=== PATIENT | male | born 1995 | race Caucasian/White ===

== ENCOUNTER 2022-09-16 19:38 | Inpatient (IN) ==
[2022-09-16] MEDS ORDERED: SODIUM CHLORIDE 0.9% 1000ML 1,000 ML IV STA (19:54)
--- NOTE | 2022-09-16 20:09 | Emergency Department Note ---
ED Provider Note History of Present Illness Chief Complaint: Abdominal Pain Stated Complaint: LRQ ABDOMINAL PAIN Time Seen by Provider: 09/16/22 19:48 27-year-old male who presents to the emergency department with complaint of developing right lower quadrant pain. The patient reports that he developed an epigastric discomfort earlier today, and the pain has since radiated into the right lower quadrant region. The patient does report a prior history of IBS, but reports that this feels different. The patient is not on any medications for his IBS. He denies history of reflux. The patient has not had any recent diarrhea, constipation or urinary symptoms. Patient currently denies any alleviating or aggravating factors for his pain, and rates his discomfort a 5 out of 10. Home Medications Medication Instructions Recorded Confirmed Type No Known Home Medications 02/18/20 09/16/22 History Allergies Allergy/AdvReac Type Severity Reaction Status Date / Time cat dander Allergy Intermediate ITCHY Verified 09/16/22 20:44 EYES, SNEEZING, CONGESTION horse dander Allergy Intermediate ITCHY Verified 09/16/22 20:44 EYES, SNEEZING, CONGESTION Past Med/Surg History Medical History IBS (irritable bowel syndrome) Surgical History No significant past surgical history Social History Smoking Status: Never smoker Preferred Language: Scottish marital status: Single current occupational status: student Feels Safe at Home: Yes Physical Exam Vital Signs Vital Signs - 24 hr 09/16/22 19:40 09/16/22 20:12 09/16/22 22:31 Temperature 36.6 C Temperature Source Temporal Artery Scan Pulse Rate 113 H Pulse Rate [Finger] 92 H 96 H Pulse Rhythm Regular Pulse Strength Normal Respiratory Rate 18 20 20 Respiratory Effort / Characteristics Non-Labored Spontaneous Respiratory Depth Normal Respiratory Pattern Regular Blood Pressure 159/100 H Blood Pressure [Right Arm] 148/100 H 151/106 H Blood Pressure Mean 119 Blood Pressure Mean [Right Arm] 116 121 Blood Pressure Position Sitting Pulse Oximetry 100 98 98 Oxygen Delivery Method Room Air Room Air Room Air Sepsis Recent Fever Within 48 Hours No Sepsis New/Unexplained Change in Mental Status N/A Sepsis Action Taken by Nursing No Action Required CONSTITUTIONAL: Healthy and well nourished. Patient does not appear in any acute distress HEENT: No scleral icterus or conjunctival pallor. RESPIRATORY: Clear to auscultation bilaterally with no wheezing, crackles, rhonchi or stridor. CARDIOVASCULAR: Regular rate and rhythm with no murmurs, rubs or gallops. GASTROINTESTINAL: Bowel sounds present in all quadrants. Patient has a mild McBurney's point tenderness and Rovsing sign. Negative psoas/obturator sign. Negative heeltap. Negative CVA tenderness. MUSCULOSKELETAL: Full range of motion of all joints without discomfort. INTEGUMENTARY: No rash or other significant dermatologic conditions noted. HEMATOLOGIC: No ecchymosis or petechiae. PSYCHIATRIC: Positive affect. NEUROLOGIC: No focal neurologic deficits noted. Course Course Patient history and physical exam were performed. Nurses notes were reviewed. Vital signs were reviewed, showing an elevated blood pressure and mild tachycardia. IV access was established, and labs were drawn. The patient was hydrated with a liter of normal saline. He refused any analgesics or antiemetics. Review of labs showed a normal white count with mild left shift and no bandemia. Further review of labs shows a mild hypokalemia that will not require repletion. Random glucose was also elevated at 176. LFTs and lipase were normal. Urinalysis shows no hematuria or signs of infection. Lab findings were discussed with the patient. I did elect to order an A1c, with the patient reporting that his grandfather had a history of diabetes, however denies any immediate relatives with known diabetes. CT with IV contrast of the abdomen and pelvis was performed, showing an uncomplicated appendicitis with a ppendicolith. Findings were discussed with the patient. He also got his mother on the phone, and I discussed findings with her as well. The mother is a nurse, and reported that she was going to drive in from [place], and wanted to speak with the surgery service when they come into the room. Findings were further discussed with Jeanmarie Macias PA-C working with Dr. Cleary, general surgeon on-c all. Please see their dictation for further surgical treatment and final disposition. Administered Medications Discontinued Medications Sodium Chloride (Nss 1000ml) 1,000 mls @ 999 mls/hr IV .Q1H1M STA Stop: 09/16/22 20:54 Last Infusion: 09/16/22 21:11 Dose: 0 mls/hr Documented By: Admin: 09/16/22 20:10 Dose: 999 mls/hr Documented By: ENRIQUE Ioversol (Optiray 320 100ml) 86 ml IV ONCE ONE Stop: 09/16/22 21:05 Last Admin: 09/16/22 21:04 Dose: 86 ml Documented By: AKBAR Medical Decision Making Medical Records Attestation: I reviewed the patient's medical records. Home Medications was personally reviewed by me Laboratory Data Attestation: I reviewed the patient's lab results. 09/16/22 19:55 09/16/22 19:55 Lab Results 09/16/22 09/16/22 09/16/22 Range/Units 19:50 19:55 19:55 WBC 9.74 (4.8-10.8) K/ul RBC 4.96 (4.70-6.10) M/uL Hgb 15.7 (14.0-18.0) g/dl Hct 43.7 (42.0-52.0) % MCV 88.1 (80.0-100.0) fL MCH 31.7 (25.0-34.0) pg MCHC 35.9 (32.0-36.0) g/dL RDW Std Deviation 41.0 (36.4-46.3) fL RDW Coeff of Shadia 12.8 (11.5-14.5) % Plt Count 243 (130-400) K/uL MPV 9.9 (9.4-12.4) fL Immature Gran % (Auto) 0.2 % Neut % (Auto) 70.3 % Lymph % (Auto) 19.9 % [place] % (Auto) 6.6 % Eos % (Auto) 2.5 % Baso % (Auto) 0.5 % Neut # (Auto) 6.85 H (1.40-6.50) K/uL Lymph # (Auto) 1.94 (1.2-3.4) K/uL [place] # (Auto) 0.64 H (0.11-0.59) K/uL Eos # (Auto) 0.24 (0-0.50) K/uL Baso # (Auto) 0.05 (0-0.2) K/uL Immature Gran # (Auto) 0.02 (0.01-0.20) K/uL Sodium 138 (136-145) mmol/L Potassium 3.4 L (3.5-5.1) mmol/L Chloride 101 (98-107) mmol/L Carbon Dioxide 27 (21-32) mmol/L Anion Gap 10 (3-11) BUN 13 (6-23) mg/dl Creatinine 1.28 (0.6-1.4) mg/dl Est Cr Clr Drug Dosing 90.3 ml/min Est GFR ( Amer) 88.9 ml/min Est GFR (Non-Af Amer) 76.7 ml/min BUN/Creatinine Ratio 10.2 (10-20) Glucose 176 H (70-99(Fasting)) mg/dl Calcium 9.6 (8.6-10.3) mg/dl Total Bilirubin 1.0 (0.2-1.0) mg/dl AST 17 (13-39) U/L ALT 17 (7-52) U/L Alkaline Phosphatase 57 (34-104) U/L Total Protein 8.2 (6.0-8.3) gm/dl Albumin 5.1 H (3.4-5.0) gm/dl Globulin 3.1 (2.5-4.0) gm/dl Albumin/Globulin Ratio 1.6 (0.9-2) Lipase 16 (11-82) U/L Urine Color Yellow Urine Appearance Clear (Clear) Urine pH 5.5 (4.5-7.5) Ur Specific [place] 1.016 (1.000-1.030) Urine Protein Negative (Negative) Urine Glucose (UA) Negative (Negative) Urine Ketones Negative (Negative) Urine Blood Negative (Negative) Urine Nitrite Negative (Negative) Urine Bilirubin Negative (Negative) Urine Urobilinogen Negative (Negative) Ur Leukocyte Esterase Negative (Negative) Imaging Data Attestation: I personally reviewed and interpreted this imaging study as fo llows: My Impression: My interpretation of the CT with IV contrast of the abdomen and pelvis shows evidence for an uncomplicated appendicitis with appendicolith. Radiologist report was also reviewed with concurrence. Radiologist's Impression: Abdomen/Pelvis CT 09/16/22 19:54 CR Exam(s): CT ABDOMEN + PELVIS With Contrast IV Amt: 86 ml optiray 320 EXAM: CT Abdomen and Pelvis With Intravenous Contrast CLINICAL HISTORY: Reason for exam: RLQ abd pain. TECHNIQUE: Axial computed tomography images of the abdomen and pelvis with intravenous contrast. CTDI is 7.15 mGy and DLP is 356.28 mGy-cm. Automated exposure control was utilized for the study. A dose lowering technique was utilized adhering to the principles of ALARA. CONTRAST: Patient received 86 ml optiray 320 of IV contrast COMPARISON: None FINDINGS: Lung bases: Unremarkable. No mass. No consolidation. ABDOMEN: Liver: Probable hepatic steatosis. Hepatomegaly. Gallbladder and bile ducts: Unremarkable. No calcified stones. No ductal dilation. Pancreas: Unremarkable. No mass. No ductal dilation. Spleen: Unremarkable. No splenomegaly. Adrenals: Unremarkable. No mass. Kidneys and ureters: Unremarkable. No hydronephrosis or obstructing stone. Stomach and bowel: Unremarkable. No mucosal thickening. No bowel obstruction. PELVIS: Appendix: Mild enlargement of the appendix measuring 9 mm with mild fat stranding and small appendicolith in the appendix. Findings are concerning for acute appendicitis. Bladder: Mildly distended bladder. No significant bladder wall thickening or stone. Reproductive: Unremarkable as visualized. ABDOMEN and PELVIS: Intraperitoneal space: Unremarkable. No free air. No significant fluid collection. Bones/joints: No acute fracture. No dislocation. Soft tissues: Unremarkable. Vasculature: Unremarkable. No abdominal aortic aneurysm. Lymph nodes: Unremarkable. No enlarged lymph nodes. IMPRESSION: 1. Mild enlargement of the appendix measuring 9 mm with mild fat stranding and small appendicolith in the appendix. Findings are concerning for acute appendicitis. 2. Probable hepatic steatosis. Hepatomegaly. Communications: Call Doctor Appendicitis Electronically signed by: Aleah Mohamud M.D. 09/16/22 22:07 PM [facility] Narrative See ED Course section for further details of today's visit. The patient presents to the emergency department with complaint of an evolving right lower quadrant abdominal pain. Physical examination does show a mild McBurney's point tenderness and Rovsing sign, concerning for possible early appendicitis. Review of labs did not show any significant leukocytosis. He does have an elevated glucose, and an A1c was ordered for convenience. CT imaging of the abdomen and pelvis shows evidence for an uncomplicated appendicitis. The case was further discussed with general surgery on-call, who will take the patient to the OR for further surgical management. Further review of labs are not suggestive of UTI, pancreatitis, cholecystitis or hepatitis. The patient does not have any fever or leukocytosis. I do not suspect musculoskeletal etiology. Also do not suspect testicular referred pain. Impression Acute appendicitis, Appendicolith Discharge Plan Visit Data Chief Complaint: Abdominal Pain Stated Complaint: LRQ ABDOMINAL PAIN ED Provider: Darwin Augustine ED Midlevel Provider: Alfred Dickey Discharge Problem: Acute appendicitis, Appendicolith Forms Stand Alone Forms: [employer] Prescriptions Prescriptions: No Action No Known Home Medications Referrals Referrals: PCP,NO [Physician] - Acute appendicitis Qualifiers: Acute appendicitis type: with localized peritonitis Appendicitis gangrene presence: without gangrene Appendicitis perforation presence: without perforation Appendicitis abscess presence: without abscess Qualified Code(s): K35.30 - Acute appendicitis with localized peritonitis, without perforation or gangrene
[2022-09-16 20:20] LABS: Appearance Urine Clear (Clear); Bilirubin Urine Negative (Negative); Blood Urine Negative (Negative); Color Urine Yellow; Glucose Urine UA Negative (Negative); Ketones Urine Negative (Negative); Leukocyte Esterase Urine Negative (Negative); Nitrite Urine Negative (Negative); Protein Urine Negative (Negative); Specific Gravity Urine 1.016 (1.000-1.030); Urobilinogen Urine Negative (Negative); pH Urine 5.5 (4.5-7.5)
[2022-09-16 20:32] LABS: Basophils # (auto) 0.05 K/uL (0-0.2); Basophils % (auto) 0.5 %; Eosinophils # (auto) 0.24 K/uL (0-0.50); Eosinophils % (auto) 2.5 %; Hematocrit (blood only) 43.7 % (42.0-52.0); Hemoglobin 15.7 g/dl (14.0-18.0); Immature Granulocytes # (auto) 0.02 K/uL (0.01-0.20); Immature Granulocytes % (auto) 0.2 %; Lymphocytes # (auto) 1.94 K/uL (1.2-3.4); Lymphocytes % (auto) 19.9 %; Mean Corpuscular Hemoglobin 31.7 pg (25.0-34.0); Mean Corpuscular Hgb Conc 35.9 g/dL (32.0-36.0); Mean Corpuscular Volume 88.1 fL (80.0-100.0); Mean Platelet Volume 9.9 fL (9.4-12.4); Monocytes # (auto) 0.64 K/uL (0.11-0.59); Monocytes % (auto) 6.6 %; Neutrophils # (auto) 6.85 K/uL (1.40-6.50); Neutrophils % (auto) 70.3 %; Platelet Count 243 K/uL (130-400); RDW Coefficient of Variation 12.8 % (11.5-14.5); Red Blood Count 4.96 M/uL (4.70-6.10); White Blood Count 9.74 K/ul (4.8-10.8)
[2022-09-16 20:39] LABS: Albumin Globulin Ratio 1.6 (0.9-2); Albumin Level 5.1 gm/dl (3.4-5.0); BUN Creatinine Ratio 10.2 (10-20); Calcium 9.6 mg/dl (8.6-10.3); Creatinine Clr Calc Pharmacy 90.3 ml/min; Est GFR (African American) 88.9 ml/min; Est GFR (Non-African American) 76.7 ml/min; Globulin 3.1 gm/dl (2.5-4.0); Potassium 3.4 mmol/L (3.5-5.1); Total Protein 8.2 gm/dl (6.0-8.3)
[2022-09-16] MEDS ORDERED: OPTIRAY 320 100ml IV ONE (21:04)
--- NOTE | 2022-09-16 22:07 | CT Scan Report ---
Exam(s): CT ABDOMEN + PELVIS With Contrast IV Amt: 86 ml optiray 320 EXAM: CT Abdomen and Pelvis With Intravenous Contrast CLINICAL HISTORY: Reason for exam: RLQ abd pain. TECHNIQUE: Axial computed tomography images of the abdomen and pelvis with intravenous contrast. CTDI is 7.15 mGy and DLP is 356.28 mGy-cm. Automated exposure control was utilized for the study. A dose lowering technique was utilized adhering to the principles of ALARA. CONTRAST: Patient received 86 ml optiray 320 of IV contrast COMPARISON: None FINDINGS: Lung bases: Unremarkable. No mass. No consolidation. ABDOMEN: Liver: Probable hepatic steatosis. Hepatomegaly. Gallbladder and bile ducts: Unremarkable. No calcified stones. No ductal dilation. Pancreas: Unremarkable. No mass. No ductal dilation. Spleen: Unremarkable. No splenomegaly. Adrenals: Unremarkable. No mass. Kidneys and ureters: Unremarkable. No hydronephrosis or obstructing stone. Stomach and bowel: Unremarkable. No mucosal thickening. No bowel obstruction. PELVIS: Appendix: Mild enlargement of the appendix measuring 9 mm with mild fat stranding and small appendicolith in the appendix. Findings are concerning for acute appendicitis. Bladder: Mildly distended bladder. No significant bladder wall thickening or stone. Reproductive: Unremarkable as visualized. ABDOMEN and PELVIS: Intraperitoneal space: Unremarkable. No free air. No significant fluid collection. Bones/joints: No acute fracture. No dislocation. Soft tissues: Unremarkable. Vasculature: Unremarkable. No abdominal aortic aneurysm. Lymph nodes: Unremarkable. No enlarged lymph nodes. IMPRESSION: 1. Mild enlargement of the appendix measuring 9 mm with mild fat stranding and small appendicolith in the appendix. Findings are concerning for acute appendicitis. 2. Probable hepatic steatosis. Hepatomegaly. Communications: Call Doctor Appendicitis Electronically signed by: Aleah Mohamud M.D. 09/16/22 22:07 PM
--- NOTE | 2022-09-16 22:32 | Surgery Consultation ---
Date of Consultation September 16, 2022 Assessment & Plan (1) Acute appendicitis: Due to the patient's clinical presentation and findings on imaging we will admit him to the hospital proceeding as follows: We will implement n.p.o. status We will provide IV fluid for hydration, supplementing his potassium -Serial labs will be followed We will initiate antibiotics. We will utilize Zosyn. Analgesia will be provided Antiemetics be provided I discussed case with my attending physician and we have elected to place patient on the operating room schedule for 09/17/2022 for a laparoscopic, possible open appendectomy.bI have discussed the risks, benefits, and alternatives of the surgery with the patient. I have also discussed the risks of not performing the surgery. I discussed the expected postoperative course and limitations/restrictions with the patient. He wishes to proceed Of note, the patient was noted to have an elevated glucose level of 176. The patient denies any known history of diabetes. It is noteworthy to mention that the patient did not have any glucose noted on his urinalysis. We will follow this with serial laboratories and acu checks. This elevation may be due to the stress response to his current illness, but will need to be followed. If he is noted to have persistently high levels we will enlist the assistance of the hospitalists. I have discussed with the patient the importance of obtaining close follow-up with his family physician upon discharge from the hospital regarding this condition. Additional recommendations be forthcoming based on operative findings and the patient's postoperative course We will use SCDs for DVT prevention, no chemical means due to planned surgery The patient will be a level 1 full code Supervising Physician Co-Signing Physician Notes I personally saw and evaluated the patient with Martin Macias PA-C and agree with the assessment and plan. 27-year-old male with acute appendicitis His CT images and results were personally viewed by myself, consistent with a dilated appendix with some fat stranding and appendicolith causing of acute appendicitis Will be admitted to the surgical service N.p.o. IV fluids IV antibiotics To the OR tomorrow for laparoscopic appendectomy, possible open History of Present Illness Reason for Consultation: Acute appendicitis History of Present Illness This is a 27-year-old male who presented to the emergency department at [facility] secondary to approximate 24 hours of abdominal pain. Patient notes he has a history of irritable bowel syndrome and he was concerned that this may have been the cause of his abdominal pain. He does note the pain began in the epigastric and periumbilical region and did not improve over the past 24 hours and has shifted to the right lower quadrant. Because of this he presented to the emergency department. He denies any fevers, shakes, or chills. He denies any nausea or vomiting. He does note that the pain is somewhat better when he lies still or when he stands up. He notes that the pain is worse with certain movements and was somewhat worse when walking up and down stairs. He notes that the pain does not radiate. He has never had any prior abdominal surgeries before. As he does have history of irritable bowel syndrome he has had a colonoscopy in the past and he notes that he did have a polyp removed but to the best of his knowledge there is no other concerning pathology. He does note that his most recent oral intake was at approximately 6:30 PM this evening at which time he ate some rice. Since arrival to the emergency department the patient has had labs and imaging which I independently reviewed. A CT scan of the abdomen pelvis showed that he had mild enlargement of the appendix measuring approximate 9 mm with associated fat stranding and a small appendicolith in the appendix. These findings were co ncerning for acute appendicitis. Labs include a CBC were white blood cell count, hemoglobin, hematocrit, and platelet count were normal. Chemistry profile showed sodium was normal. His potassium was slightly low at 3.4. BUN and creatinine were 13 and 1.2 which were normal. He did not have any elevation of his LFTs. He was noted to have an elevated glucose at 176. He did not have any elevation of his lipase. Urinalysis was not indicative of infection. There is no glucose noted on the urinalysis. The patient had a COVID test which is pending. At the time of my interview the patient was resting comfortably in bed he was in no distress. Concerning past medical history the patient only reports a history of irritable bowel syndrome Concerning past surgical history patient notes he has had a lip reconstruction secondary to suffering a dog bite Concerning social history the patient does not smoke Concerning family history he does not report family history of premature coronary disease Concerning allergies the patient denies any medicine allergies and specifically notes that he can take penicillin derivatives. Allergies Allergy/AdvReac Type Severity Reaction Status Date / Time cat dander Allergy Intermediate ITCHY Verified 09/16/22 20:44 EYES, SNEEZING, CONGESTION horse dander Allergy Intermediate ITCHY Verified 09/16/22 20:44 EYES, SNEEZING, CONGESTION Home Medications Medication Instructions Recorded Confirmed Type No Known Home Medications 02/18/20 09/16/22 History Patient History Medical History IBS (irritable bowel syndrome) Surgical History No significant past surgical history Social History Smoking Status: Never smoker Second Hand Exposure: No; Do You Dip or Chew Tobacco: No; Tobacco Cessation Education Requested by Patient: No Hx Alcohol Use: Yes Alcohol type: beer and hard liquor Hx Substance Use: No Preferred Language: B[place] Communication Ability: Effective 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 Beliefs That Will Affect Care: None marital status: Single Current Living Situation: Other Current Living Situation Comment: 2 roommates in apartment current occupational status: student Other Information That Helps Us Care for You: No Feels Safe at Home: Yes Safety Concerns: Feels Safe At This Time Assistive Devices: Glasses Review of Systems Constitutional: no fever and no chills Eyes: + corrective lenses Ear, Nose, Mouth, Throat: no hearing loss Respiratory: no cough and no dyspnea Cardiovascular: no chest pain Gastrointestinal: as per Subjective / HPI Genitourinary: no dysuria Musculoskeletal: no back pain Integumentary: no rash Neurologic: no localized weakness Physical Exam Constitutional: WD/WN, vitals as above Eyes: no conjunctival abnormality Wears glasses ENMT: Ears: no hearing impairment and no external ear abnormality Mouth: no oropharynx abnormality Neck: trachea midline Respiratory: normal respiratory effort, lungs clear to auscultation Cardiovascular: Rate/Rhythm: regular rate, regular rhythm and + tachycardic Vessels: dorsalis pedis pulses present and radial pulses present Gastrointestinal (Abdomen): Abdomen is soft and nondistended. Bowel sounds are present. His abdomen is nonrigid. Patient did have pain with palpation in the right lower quadrant over McBurney's point. There is slight rebound tenderness noted. Musculoskeletal: No calf tenderness, feet are warm and well-perfused Skin: no rashes Neurologic: moves all extremities Psychiatric: A+Ox3, euthymic affect Genitourinary: no CVA tenderness Results & Data Vital Signs (Past 12 Hours) Vital Signs Temp Pulse Pulse Resp BP BP Pulse Ox 09/16/22 20:12 92 H 20 148/100 H 98 09/16/22 19:40 36.6 C 113 H 18 159/100 H 100 O2 Del Method 09/16/22 20:12 Room Air 09/16/22 19:40 Room Air PG Care Time/CCT Total # of Minutes Spent Total Time Spent with Patient: Total time spent is greater than 50% in coordination of care (as documented) at patient's floor/unit and/or counseling patient: Coding Level of Care Code 64350 IN/OBS CONSULT LVL 5,80M Diagnoses Acute appendicitis K35.30 Acute appendicitis type: with localized peritonitis Appendicitis abscess presence: without abscess Appendicitis gangrene presence: without gangrene Appendicitis perforation presence: without perforation (1) Acute appendicitis Acute appendicitis type: with localized peritonitis Appendicitis abscess presence: without abscess Appendicitis gangrene presence: without gangrene Appendicitis perforation presence: without perforation Qualified Code(s): K35.30 - Acute appendicitis with localized peritonitis, without perforation or gangrene
[2022-09-16] MEDS ORDERED: MoRPHine SULFATE 4 MG/ML 1 ML CARP\\VIAL IV PRN (22:48)
[2022-09-16] MEDS ORDERED: ACETAMINOPHEN 1,000 MG/100 ML VIAL IV PRN (22:48)
[2022-09-16] MEDS ORDERED: PIPERACILLIN/TAZOBACTAM 4.5 GM/120 ML BAG IV ONE (22:48)
[2022-09-16] MEDS ORDERED: ONDANSETRON INJ 2 MG/ML 2 ML VIAL IV PRN (22:48)
[2022-09-17] MEDS: POTASSIUM CHLORIDE 10 MEQ in SODIUM CHLORIDE 0.9% 1000ML 1,000 ML IV SCH ×2 (01:30→13:33)
[2022-09-17] MEDS ORDERED: PIPERACILLIN/TAZOBACTAM 4.5 GM in DEXTROSE 5% 100 ML IV SCH (06:00)
[2022-09-17 06:34] LABS: Basophils # (auto) 0.06 K/uL (0-0.2); Basophils % (auto) 0.7 %; Eosinophils # (auto) 0.29 K/uL (0-0.50); Eosinophils % (auto) 3.6 %; Hematocrit (blood only) 39.4 % (42.0-52.0); Hemoglobin 14.3 g/dl (14.0-18.0); Immature Granulocytes # (auto) 0.02 K/uL (0.01-0.20); Immature Granulocytes % (auto) 0.2 %; Lymphocytes # (auto) 2.22 K/uL (1.2-3.4); Lymphocytes % (auto) 27.6 %; Mean Corpuscular Hemoglobin 32.1 pg (25.0-34.0); Mean Corpuscular Hgb Conc 36.3 g/dL (32.0-36.0); Mean Corpuscular Volume 88.3 fL (80.0-100.0); Mean Platelet Volume 9.9 fL (9.4-12.4); Monocytes # (auto) 0.57 K/uL (0.11-0.59); Monocytes % (auto) 7.1 %; Neutrophils # (auto) 4.87 K/uL (1.40-6.50); Neutrophils % (auto) 60.8 %; Platelet Count 197 K/uL (130-400); RDW Coefficient of Variation 12.7 % (11.5-14.5); RDW Standard Deviation 41.1 fL (36.4-46.3); Red Blood Count 4.46 M/uL (4.70-6.10); White Blood Count 8.03 K/ul (4.8-10.8)
[2022-09-17 06:46] LABS: BUN Creatinine Ratio 8.9 (10-20); Calcium 8.6 mg/dl (8.6-10.3); Creatinine Clr Calc Pharmacy 93.2 ml/min; Est GFR (African American) 92.4 ml/min; Est GFR (Non-African American) 79.7 ml/min; Potassium 3.7 mmol/L (3.5-5.1)
[2022-09-17 07:12] LABS: Estimated Average Glucose 108 mg/dl; Hemoglobin A1C 5.4 % (4.5-5.6)
--- NOTE | 2022-09-17 08:14 | Surgery Progress Note ---
Date of Service September 17, 2022 Assessment & Plan (1) Acute appendicitis: Plan: We will take patient to the operating room today for laparoscopic appendectomy, possible open Consent was obtained, risk discussed including bleeding, infection, leak, abscess Admission and Anticipated Discharge Date Admission Date: September 16, 2022 Subjective Patient seen and examined. No acute events overnight. Afebrile. Still with right lower quadrant pain. No nausea or vomiting. Review of Systems Constitutional: no fever and no chills Physical Exam Constitutional: WD/WN, vitals as above Gastrointestinal (Abdomen): Inspection/Auscultation: abdomen normal to inspection; abdomen not distended Percussion/Palpation: + abdomen tender (Right lower quadrant), + guarding and abdomen soft; abdomen not rigid and no hernia Results & Data Vital Signs (Past 12 Hours) Vital Signs Temp Pulse Resp BP Pulse Ox O2 Del Method 09/17/22 07:04 36.8 C 89 18 147/84 H 100 Room Air 09/17/22 00:00 Room Air 09/17/22 00:00 Room Air 09/17/22 00:00 36.5 C 98 H 18 149/90 H 100 Room Air 09/16/22 23:43 88 18 145/87 H 99 Room Air 09/16/22 22:31 96 H 20 151/106 H 98 Room Air 09/16/22 20:12 92 H 20 148/100 H 98 Room Air PG Care Time/CCT Total # of Minutes Spent Total Time Spent with Patient: Total time spent is greater than 50% in coordination of care (as documented) at patient's floor/unit and/or counseling patient: Coding Level of Care Code 25825 SUB INP/OBS CARE 06/05MIN Diagnoses Acute appendicitis K35.30 Acute appendicitis type: with localized peritonitis Appendicitis abscess presence: without abscess Appendicitis gangrene presence: without gangrene Appendicitis perforation presence: without perforation (1) Acute appendicitis Acute appendicitis type: with localized peritonitis Appendicitis abscess presence: without abscess Appendicitis gangrene presence: without gangrene Appendicitis perforation presence: without perforation Qualified Code(s): K35.30 - Acute appendicitis with localized peritonitis, without perforation or gangrene
[2022-09-17] MEDS ORDERED: MIDAZOLAM HCL 1 MG/ML 2ML VIAL ONE (08:56)
[2022-09-17] MEDS ORDERED: fentaNYL citrate PF 100 MCG/2 ML VIAL ONE ×2 (08:56→10:12)
[2022-09-17] MEDS ORDERED: ONDANSETRON INJ 2 MG/ML 2 ML VIAL ONE (09:01)
[2022-09-17] MEDS ORDERED: LIDOCAINE 2% 2 ML VIAL/AMP(20MG/ML) INFIL ONE (09:01)
[2022-09-17] MEDS ORDERED: ROCURONIUM BROMIDE 10 MG/ML 5 ML VIAL IV ONE (09:01)
[2022-09-17] MEDS ORDERED: DEXAMETHASONE SOD INJ 4 MG/ML VIAL ONE (09:01)
[2022-09-17] MEDS ORDERED: PROPOFOL IV EMULSION 10 MG/ML 20 ML VIAL IV ONE (09:01)
[2022-09-17] MEDS ORDERED: HYDROmorphone INJ 1 MG/ML SYRINGE IV PRN (09:14)
[2022-09-17] MEDS ORDERED: NALOXONE HCL 0.4 MG/1 ML VIAL/CARP IV PRN (09:14)
[2022-09-17] MEDS ORDERED: FLUMAZENIL 0.1 MG/1 ML 10 ML VIAL IV PRN (09:14)
[2022-09-17] MEDS ORDERED: ATROPINE SULFATE 0.1 MG/ML 10ML SYR IV PRN (09:14)
[2022-09-17] MEDS ORDERED: fentaNYL citrate PF 100 MCG/2 ML VIAL IV PRN (09:14)
[2022-09-17] MEDS ORDERED: PROMETHAZINE HCL 12.5 MG in SODIUM CHLORIDE 0.9% 50 ML IV PRN (09:14)
[2022-09-17] MEDS ORDERED: ONDANSETRON INJ 2 MG/ML 2 ML VIAL IV PRN (09:14)
[2022-09-17] MEDS ORDERED: ePHEDrine sulfate 50 MG/ML AMP IV PRN (09:14)
--- NOTE | 2022-09-17 09:14 | Anesthesiology Consultation ---
Date of Service September 17, 2022 Assessment & Plan Chart Review Chart Review: Acceptable Risk for Surgery and Patient NOT seen in Pre Admission Testing Consults Requested none ASA ASA1 Proposed Anesthesia Anesthesia Type: General History Surgery Operation Date: 09/17/22 08:50 Proposed Procedures p Laparoscopic Appendectomy - Gabe Cleary DO Height/Weight Height: 5 ft 10 in Weight: 73.5 kg Allergies Allergy/AdvReac Type Severity Reaction Status Date / Time cat dander Allergy Intermediate ITCHY Verified 09/16/22 20:44 EYES, SNEEZING, CONGESTION horse dander Allergy Intermediate ITCHY Verified 09/16/22 20:44 EYES, SNEEZING, CONGESTION Medications Home Medications Medication Instructions Recorded Confirmed Last Taken No Known Home Medications 02/18/20 09/16/22 Unknown Active Medications Generic Name Dose Route Start Last Admin Trade Name Freq PRN Reason Stop Dose Admin Acetaminophen 1,000 mg in 100 mls @ 400 mls/hr 09/16/22 22:48 09/17/22 00:57 Ofirmev IV 09/19/22 22:47 Infused Q8H PRN Infusion pain Potassium Chloride 10 meq/ 1,005 mls @ 125 mls/hr 09/16/22 23:00 09/17/22 01:30 Sodium Chloride IV 10/16/22 22:59 125 mls/hr .Q8H3M ARINA Administration Piperacillin Sod/Tazobactam 120 mls @ 30 mls/hr 09/17/22 06:00 09/17/22 05:47 Sod 4.5 gm/ Dextrose IV 09/27/22 05:59 30 mls/hr Q8H ARINA Administration Protocol Morphine Sulfate 3 mg 09/16/22 22:48 09/17/22 05:46 Morphine Sulfate 4 Mg/Ml 1 Ml Carp\Vial IV 09/30/22 22:47 3 mg Q4H PRN Administration Pain Past Medical History Medical History IBS (irritable bowel syndrome) Exercise / Class Metabolic Activity 1 > 8 Run/Swim/Ski/Tennis Past Surgical History Surgical History No significant past surgical history Past Anesthesia History No Hx of Anesthesia Complications and No Family Hx of Anesthesia Complications History of PONV No Hx of PONV and No Hx of Motion Sickness Social History Smoking Status: Never smoker Do You Dip or Chew Tobacco: No Hx Alcohol Use: Yes Alcohol type: beer and hard liquor alcohol intake frequency: holidays/special occasions only Hx Substance Use: No Physical Exam Vital Signs Last Vital Signs Temp 36.8 C 09/17/22 07:04 Pulse 89 09/17/22 07:04 Resp 18 09/17/22 07:04 BP 147/84 H 09/17/22 07:04 Pulse Ox 100 09/17/22 07:04 O2 Del Method Room Air 09/17/22 07:04 Testing Laboratory Results 09/17/22 05:54 09/17/22 05:54 Hemoglobin A1c 5.4 % (4.5-5.6) 09/16/22 19:55 Urine Color Yellow 09/16/22 19:50 Urine Appearance Clear (Clear) 09/16/22 19:50 Urine pH 5.5 (4.5-7.5) 09/16/22 19:50 Ur Specific [place] 1.016 (1.000-1.030) 09/16/22 19:50 Urine Protein Negative (Negative) 09/16/22 19:50 Urine Glucose (UA) Negative (Negative) 09/16/22 19:50 Urine Ketones Negative (Negative) 09/16/22 19:50 Urine Nitrite Negative (Negative) 09/16/22 19:50 Ur Leukocyte Esterase Negative (Negative) 09/16/22 19:50 09/17/22 09/17/22 06:32 00:16 POC Glucose 86 93
[2022-09-17] MEDS ORDERED: BUPIVACAINE/EPINEPHRINE 0.25% 1:200,000 30 ML VIAL ONE (09:32)
[2022-09-17] MEDS ORDERED: GLYCOPYRROLATE 0.2 MG/ML VIAL ONE (10:20)
[2022-09-17] MEDS ORDERED: NEOSTIGMINE METHYLSULFATE 1 MG/ML 10ML VIAL ONE (10:20)
--- NOTE | 2022-09-17 10:53 | Post Operative Brief Note ---
PG Immediate Post Op with CF Date of Surgery September 17, 2022 Pre & Post Diagnosis Operation Date: 09/17/22 08:50 Pre-Op Diagnosis: Acute appendicitis Post-Op Diagnosis: Acute appendicitis without perforation I identified the patient and participated in the time-out.: Yes Procedure Operation Date: 09/17/22 08:50 Actual Procedures p Laparoscopic Appendectomy(Not Applicable) - Gabe Cleary DO Surgeon Gabe Cleary DO Heel Cementer Rosa Scherer PA-C Estimated Blood Loss 5 Findings Consistent with Post-Op Diagnosis Specimens Specimen Description: permanent specimen: A) Appendix Drains Cuevas Catheter Anesthesia Type General Complications none Disposition Disposition: Recovery Room
--- NOTE | 2022-09-17 10:55 | Operative Report ---
PG Post Operative Report Pre & Post Diagnosis Operation Date: 09/17/22 08:50 Pre-Op Diagnosis: Acute appendicitis Post-Op Diagnosis: Acute appendicitis without perforation I identified the patient and participated in the time-out.: Yes Procedure Operation Date: 09/17/22 08:50 Actual Procedures p Laparoscopic Appendectomy(Not Applicable) - Gabe Cleary DO Surgeon Gabe Cleary DO Hull Inspector Roas Scherer PA-C Estimated Blood Loss 5 Findings Consistent with Post-Op Diagnosis Specimens Appendix to pathology Drains None Anesthesia Type General Complications none Disposition Disposition: Recovery Room Indications 27 yo male with acute appendicitis Description of Procedure The patient was brought to the OR and placed in the supine position and SCD's placed. At this time he underwent general endotracheal anesthesia without incident. At this time a Cuevas catheter was placed under sterile conditions. His abdomen was prepped and draped in the usual sterile fashion. He was given appropriate pre-operative antibiotics. A timeout was called, the procedure was verified as Laparoscopic appendectomy, possible open. Surgical, anesthesia and nursing teams agreed and the procedure was begun. After injection of 0.25% Marcaine with epinephrine, a supraumbilical incision was made using a #11 blade scalpel and carried down to the fascia with a hemostat. The abdomen was then elevated with towel clamps and entered using the Veress needle confirming position using the saline drop test. Pneumoperitoneum was established and 5mm trocar was placed. Laparoscope was introduced. No injury was seen from our entrance to the abdomen. At this time a 5mm suprapubic port and 12mm LLQ port were placed under direct visualization. The patient was placed in Trendelenburg and rotated to the left. At this time the appendix was visualized and the tip was freed and elevated toward the abdominal wall. The appendix appeared inf lamed, dilated and edematous. A window was created in the mesoappendix at the base of the appendix. A 45mm purple load stapler was then fired across the base of the appendix which appeared healthy. The mesoappendix was then taken using Harmonic device. The appendix was then placed in an Endocatch bag and removed through the LLQ port site. Staple line was inspected and was intact. Hemostasis was complete. The 12 mm port was then closed at the fascial level using a 0 Vicryl suture using the suture passer. All ports were removed under direct visualization and no bleeding was noted. The abdomen was desufflated and the skin was closed using 4-0 Monocryl in a subcuticular fashion. Sterile dressings were applied. Cuevas catheter was removed. The patient was then awakened from anesthesia having remained stable throughout the entire case and transported to PACU. All needle and sponge counts were correct x 2. The physician assistant reading teacher was present and scrubbed for the entire case. She was essential in positioning, prepping and draping the patient, driving the laparoscope, closure of the incisions and placement of the dressings. I attest to the content of the Intraoperative Record and any orders documented therein. Any exceptions are noted below.
[2022-09-17] MEDS ORDERED: SUGAMMADEX SODIUM 200 MG/2 ML VIAL IV ONE (11:53)
--- NOTE | 2022-09-17 12:02 | Anesthesiology Progress Note ---
Date of Service September 17, 2022 Anesthesia Post Procedure Vital Signs Vital Signs: Temp Pulse Pulse Pulse Resp BP BP 09/17/22 11:25 93 H 18 144/89 H 09/17/22 11:45 36.4 C L 87 14 147/81 H 09/17/22 11:35 36.4 C L 93 H 14 141/92 H 09/17/22 11:15 85 14 139/76 09/17/22 11:06 36.0 C L 94 H 16 122/80 09/17/22 09:23 36.6 C 94 H 15 139/89 09/17/22 07:04 36.8 C 89 18 147/84 H 09/17/22 00:00 09/17/22 00:00 09/17/22 00:00 36.5 C 98 H 18 149/90 H 09/16/22 23:43 88 18 145/87 H 09/16/22 22:31 96 H 20 151/106 H 09/16/22 20:12 92 H 20 148/100 H 09/16/22 19:40 36.6 C 113 H 18 159/100 H Pulse Ox O2 Del Method O2 Flow Rate 09/17/22 11:25 100 Nasal Cannula 3 09/17/22 11:45 95 Nasal Cannula 2 09/17/22 11:35 97 Nasal Cannula 3 09/17/22 11:15 100 Oxymask 3 09/17/22 11:06 100 Oxymask 5 09/17/22 09:23 100 Room Air 09/17/22 07:04 100 Room Air 09/17/22 00:00 Room Air 09/17/22 00:00 Room Air 09/17/22 00:00 100 Room Air 09/16/22 23:43 99 Room Air 09/16/22 22:31 98 Room Air 09/16/22 20:12 98 Room Air 09/16/22 19:40 100 Room Air Pain Intensity Abdomen: Pain Intensity: 1 Transfer of Care Handoff Completed per policy Notes Mental Status: alert / awake / arousable Patient Amnestic to Procedure: Yes Nausea / Vomiting: adequately controlled Pain: adequately controlled Airway Patency, RR, SpO2: stable & adequate BP & HR: stable & adequate Hydration State: stable & adequate Anesthetic Complications: no major complications apparent
[2022-09-17] MEDS ORDERED: MoRPHine SULFATE 2 MG/ML CARP IV PRN (12:05)
[2022-09-17] MEDS ORDERED: LACTATED RINGER'S 1,000 ML IV SCH (12:05)
[2022-09-17] MEDS ORDERED: oxyCODONE HCL IR 5 MG TAB (IMMEDIATE RELEASE) PO PRN ×2 (12:05)
[2022-09-17] MEDS ORDERED: MoRPHine SULFATE 4 MG/ML 1 ML CARP\\VIAL IV PRN (12:05)
--- NOTE | 2022-09-17 14:54 | Discharge Summary ---
Date of Service September 17, 2022 Principal Diagnosis Acute appendicitis Discharge Exam awake/alert Respiratory normal respiratory effort Gastrointestinal (Abdomen) Inspection/Auscultation: + abdominal surgical incision (c/d/i with surgical dressings in place) Percussion/Palpation: + abdomen tender (expected camilla incisional discomfort to palpation ) and abdomen soft Discharge Data Allergies Allergy/AdvReac Type Severity Reaction Status Date / Time cat dander Allergy Intermediate ITCHY Verified 09/16/22 20:44 EYES, SNEEZING, CONGESTION horse dander Allergy Intermediate ITCHY Verified 09/16/22 20:44 EYES, SNEEZING, CONGESTION Consultations 09/16/22 22:14 ED Decision to Admit Stat Procedures Performed Operation Date: 09/17/22 08:50 Actual Procedures p Laparoscopic Appendectomy(Not Applicable) - Gabe Cleary, Ordered Studies 09/16/22 19:54 CT abd pelvis IV con only Stat Hospital Course (1) Acute appendicitis: This is a 27yM who presented to the [facility] ED on 09/16/22 with abdominal pain. Workup in the ED showed a WBC of [address] a/p concerning for acute appendicitis. The patient was tender to palpation in the RLQ. Patient made NPO with IVF and booked for the OR. On 09/17 the patient went to the OR with Dr. Cleary for a laparoscopic appendectomy. The patient tolerated the procedure well, see operative report for full details. Post operatively the patient's diet was advanced, pain managed on prn meds, and incisions clean/dry/intact. On POD#0 the patient was deemed stable for discharge to home. Total Time Total Time Spent Total Time Spent (In Minutes): 10 Discharge Plan Discharge Items Patient Disposition: Home - Self-Care Reason For Visit: APPY Discharge Diagnosis: laparoscopic appendectomy Activity: Per Instructions section Lifting: No more than 10 pounds Bathing Comment: may shower starting 09/18/22; no soaking in tubs/pools x2 weeks Exercise/Sports: Wait until after follow-up appointment Driving/Machine Use: no driving while taking narcotics for pain Non-emergency contact: Surgeon Call non-emergency contact if: you have any medication questions, your symptoms worsen, your pain is not controlled, your pain is concerning for you, you have a fever, your temperature is above 101.5, your wound has increased redness, your wound has increased drainage and your wound pain has increased Follow-up/Referrals: Gabe Cleary, [Physician] - 10/02/22 10:00 am (Please call to schedule follow up in clinic within 2 weeks ) Lemuel Beaver MD [Primary Care Provider] - Diet: Regular Addtl Attending Provider Instructions: You may purchase Tylenol and/or Ibuprofen over the counter if needed for additional pain control over the next few days. Take per manufacturers instructions You may remove your outer surgical dressings on 09/19/22. You will have small white bandages on underneath called steri strips. You may shower with these on. They will tend to fall off on their own within 7-10 days Pending Studies at Discharge: Yes Studies:: surgical pathology Stand-Alone Forms: My [facility] Roombeats, Smoking Cessation Medications and DC Order Prescriptions: New oxycodone 5 mg tablet 5 - 10 mg PO .[id number] PRN (Reason: pain, for initial therapy, max 6 tabs per day) Qty: 12 0RF Discharge Orders: Discharge Order (Routine); Ordered 09/17/22 Ordered By: Rosa Larson/Other Patient Handouts: Surgery for Appendicitis Admission Data Admit Date/Time: 09/16/22 22:52 Attending Provider: Gabe Cleary Admit Provider: Gabe Cleary Primary Care Provider: Lemuel Beaver Other Providers: Gabe Cleary Other Interventions: Discharge Summary Assessment (RN) Last Done: 09/17/22 13:56 Coding Level of Care Code 35393 IN/OBS DISCH 30 MIN/LESS Diagnoses Acute appendicitis K35.30 Acute appendicitis type: with localized peritonitis Appendicitis abscess presence: without abscess Appendicitis gangrene presence: without gangrene Appendicitis perforation presence: without perforation
== END 2022-09-17 14:28 | disposition home or self-care (01) | DRG 343 ==
LOC: ED 19:38 → 3E 22:52